=== PATIENT | female | born 2000 | race Caucasian/White ===

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

== ENCOUNTER 2020-05-10 23:36 | Emergency (ER) | payer MEDICAID, OTHER ==
[2020-05-10 23:55] VITALS: BP 123/79; PULSE 110; O2SAT 98
== END 2020-05-11 00:25 | disposition left against medical advice (07) ==
LOC: ED 23:36
DX: Z33.1 Pregnant state, incidental (principal); R10.9 Unspecified abdominal pain
CPT/HCPCS: 99283; G0463

== ENCOUNTER 2020-06-26 14:20 | Day surgery (SDC) | payer OTHER ==
[2020-06-26] MEDS ORDERED: KEFZOL 1 GM/50 ML PREMIX** 1 GM/50 ML IVPB IV ONE (14:57)
[2020-06-26] MEDS ORDERED: Lactated Ringers 1,000 ML IV ONE (14:57)
[2020-06-26] MEDS: KEFZOL 1 GM/50 ML PREMIX** 1 GM/50 ML IVPB IV SCH (15:01)
[2020-06-26] MEDS: Lactated Ringers 1,000 ML IV SCH (15:01)
[2020-06-26] MEDS ORDERED: Versed 2 MG/2 ML Injection ONE (15:50)
[2020-06-26] MEDS ORDERED: Decadron 4 MG INJ ONE (15:52)
[2020-06-26] MEDS ORDERED: SUBLIMAZE 100 MCG/2 ML ONE (15:52)
[2020-06-26] MEDS ORDERED: DIPRIVAN 200 MG/20 ML IV ONE (15:52)
[2020-06-26] MEDS ORDERED: Zofran 4 MG/2 ML VIAL ONE (15:52)
[2020-06-26] MEDS: Versed 2 MG/2 ML Injection IV ONE (15:54)
[2020-06-26] MEDS ORDERED: Xylocaine-Mpf 2% 5 Ml Vial ONE (16:04)
[2020-06-26] MEDS ORDERED: TORAdol 30 mg Injection ONE (16:23)
[2020-06-26 17:16] VITALS: O2SAT 100
[2020-06-26 17:42] VITALS: BP 111/79; PULSE 89
--- NOTE | 2020-06-27 08:02 | OP ---
SURGERY DATE/TIME: 06/26/2020 1601 PREOPERATIVE DIAGNOSIS: Missed , demise at 7.3 weeks gestation. POSTOPERATIVE DIAGNOSIS: Missed , demise at 7.3 weeks gestation. PROCEDURE: Suction with dilatation and curettage. SURGEON: Triston So D.O. DIRECTOR OF STUDENT FINANCIAL AID: Ginny Vincent, surgical scrub technician. ANESTHESIA: General. ESTIMATED BLOOD LOSS: Minimal. COMPLICATIONS: None. INDICATIONS: The risks, benefits, indications and alternatives of the procedure were reviewed with the patient prior to procedure. The patient understood the risk of infection, bleeding, bowel injury, bladder injury, ureteral injury, uterine perforation associated with the procedure as well as pelvic infection, thromboembolic disorder that may be associated with this procedure however desires to have this surgery as a possible need to alleviate her current medical condition. DESCRIPTION OF PROCEDURE AND FINDINGS: At this point the patient is taken to the operating room, given general sedation, placed in dorsal lithotomy position. Prepped and draped in the usual sterile fashion. A weighted speculum is then placed in the patient's vagina and the anterior lip of the cervix is grasped with a single tooth tenaculum. Endocervical dilators were advanced through the endocervical canal as a means to dilate the cervix and at this point a #7 curved suction Vacurette was then placed into the fundus of the uterus where the machine was turned on and suctioning was taking place and was done so without complication retrieving the entire uterine content. From this point the suction Vacurette was then removed and the curette was then placed into the fundus of the uterus and curettage was performed in all quadrants of the uterus retrieving the remaining tissue. From this point hemostasis was obtained. From this point all instruments were then removed the patients vaginal region and the patient was then taken out of the dorsal lithotomy position and was taken out of anesthesia and was then taken to the recovery room in stable condition. All instruments and laps were accounted for x2.
== END 2020-06-26 17:59 | disposition home or self-care (01) ==
LOC: SDC 14:20
PROVIDERS: ATTEND Obstetrics & Gynecology
DX: O02.1 Missed abortion (principal); O08.9 Unspecified complication following an ectopic and molar pregnancy
CPT/HCPCS: J0690; J1100; J1885; J2250; J2405; J2704; J3010

== ENCOUNTER 2021-12-26 05:55 | Day surgery (SDC) | payer OTHER ==
[2021-12-26] MEDS ORDERED: Lactated Ringers 1,000 ML IV SCH (06:30)
[2021-12-26] MEDS ORDERED: DIPRIVAN 200 MG/20 ML IV ONE ×2 (07:59→08:11)
[2021-12-26] MEDS ORDERED: Xylocaine-Mpf 2% 5 Ml Vial ONE (07:59)
--- NOTE | 2021-12-26 09:01 | OP ---
SURGERY DATE/TIME: 12/26/2021 0802 PREOPERATIVE DIAGNOSIS: Rectal bleeding. POSTOPERATIVE DIAGNOSIS: Mild proctitis. PROCEDURE: Colonoscopy with cold forceps biopsy. SURGEON: Dr. Chano Cook. ANESTHESIA: MAC. Medications given by anesthesia department. HISTORY: The patient is a 21-year-old white female presenting now for history of rectal bleeding. The patient reports she had previous upper and lower endoscopies performed when she was 13 years old. She reports there were no significant pathology noted at that time to her recollection. The patient is felt the need to have endoscopic evaluation due to the bleeding. She was appraised of the risks of the procedure including the risk of perforation, phlebitis, untoward reaction to medication, bleeding and missed lesions. The patient verbalized her understanding and desired to have the procedure performed. DESCRIPTION OF PROCEDURE: The patient was given the medications by the anesthesia department. She had continuous pulse oximetry, ECG monitoring, intermittent blood pressure monitoring and tidal CO2 monitoring during the examination. She was placed in the left lateral decubitus position. A digital rectal examination was performed and revealed normal anal sphincter tone and no masses. The flexible Olympus pediatric colonoscope was used to intubate the rectum. A view of the colon was developed sequentially to the cecum including a short distance into the terminal ileum. Upon insertion and withdrawal was noted some friability in the rectum area this is biopsied using cold biopsy technique. The scope was removed from the patient who tolerated the procedure well and was sent back to OP recovery in good condition. The prep was noted to be fair to good.
[2021-12-26 09:06] VITALS: O2SAT 100
[2021-12-26 09:22] VITALS: BP 119/85; PULSE 74
== END 2021-12-26 09:25 | disposition home or self-care (01) ==
LOC: SDC 05:55
PROVIDERS: ATTEND Family Medicine
DX: K62.89 Other specified diseases of anus and rectum (principal); K62.5 Hemorrhage of anus and rectum
CPT/HCPCS: 81025; J2704

== ENCOUNTER 2023-02-03 10:28 | Day surgery (SDC) | payer OTHER ==
[2023-02-03] MEDS ORDERED: Depo-Medrol 40 MG/ML IM ONE (10:29)
[2023-02-03] MEDS ORDERED: Sodium Chloride 0.9(Preservative Free) 10 ML IJ ONE (10:29)
[2023-02-03 11:12] LABS: HCG URINE TEST NEGATIVE (NEGATIVE)
[2023-02-03] MEDS ORDERED: DIPRIVAN 200 MG/20 ML IV ONE (12:11)
[2023-02-03] MEDS ORDERED: Versed 2 MG/2 ML Injection ONE (12:22)
[2023-02-03] MEDS ORDERED: Lactated Ringers 1,000 ML IV ONE (14:36)
--- NOTE | 2023-02-03 14:46 | XRAY ---
Indication: Caudal KYRA. Intraoperative fluoroscopy provided for 24 seconds. 2 digital spot image submitted for interpretation demonstrates caudal needle tip projecting mid sacrum. Small amount of contrast injected for needle tip placement. Correlate with intraoperative findings
--- NOTE | 2023-02-03 16:47 | XRAY ---
24 seconds of fluoroscopy was used in surgery for a caudal KYRA.
== END 2023-02-03 12:47 | disposition home or self-care (01) ==
LOC: SDC-PAIN 10:28
PROVIDERS: ATTEND Psychiatry & Neurology Pain Medicine
DX: M54.16 Radiculopathy, lumbar region (principal); Z79.899 Other long term (current) drug therapy
CPT/HCPCS: 62323; 72220; 77003; 81025; J1030; J2250; J2704; Q9966